=== PATIENT | female | born 1930 | race Caucasian/White ===

== ENCOUNTER 2016-12-10 12:25 | Day surgery (SDC) | payer MEDICARE ==
[2016-12-03 10:36] LABS: HEMATOCRIT 39.4 % (36.0-47.0); HEMOGLOBIN 12.8 g/dL (12.0-15.5); MEAN CORPUSCULAR HEMOGLOBIN 30.4 pg (27.0-33.4); MEAN CORPUSCULAR HGB CONC 32.4 g/dL (32.0-36.0); MEAN CORPUSCULAR VOLUME 94 fl (80-97); RED CELL DISTRIBUTION WIDTH 13.6 % (11.5-14.0); WHITE BLOOD COUNT 11.6 10^3/uL (4.0-10.5)
[2016-12-03 11:03] LABS: ANION GAP 14 (5-19); BLOOD UREA NITROGEN 10 mg/dL (7-20); CALCIUM 9.6 mg/dL (8.4-10.2); CARBON DIOXIDE 28 mmol/L (22-30); CHLORIDE 101 mmol/L (98-107); GLUCOSE 95 mg/dL (75-110); POTASSIUM 3.5 mmol/L (3.6-5.0); SODIUM 142.9 mmol/L (137-145)
--- NOTE | 2016-12-05 16:19 | EKG REPORT ---
SEVERITY:- ABNORMAL ECG - WANDERING PACEMAKER SUPRAVENTRICULAR BIGEMINY LVH WITH IVCD, LAD AND SECONDARY REPOL ABNRM : Confirmed by: Jessica Dillon MD 05-Dec-2016 16:18:35
[~2016-12-10 12:25] MED LIST: LACTATED RINGERS 1000 ML IV PRN; LIDOCAINE 0.5% INJ-PF (5 MG/ML) 50 ML SDV SUBCUT PRN
[2016-12-10] MEDS ORDERED: LIDOCAINE 0.5% INJ-PF (5 MG/ML) 50 ML SDV ONE (13:51)
[2016-12-10] MEDS ORDERED: BUPIVACAINE HCL 0.25 % INJ/PF (2.5 MG/1 ML) 30 ML VIAL ONE (13:51)
[2016-12-10] MEDS ORDERED: BACITRACIN INJ 50,000 UNIT VIAL ONE (13:52)
[2016-12-10] MEDS ORDERED: KETAMINE HCL INJ 500 MG/10 ML VIAL ONE (16:57)
[2016-12-10] MEDS ORDERED: MIDAZOLAM 2 MG/2 ML INJ ONE (16:57)
[2016-12-10] MEDS ORDERED: PROPOFOL INJ 200 MG/20 ML VIAL IV ONE (16:57)
[2016-12-10] MEDS ORDERED: BUPIVACAINE HCL 0.25 % INJ/PF (2.5 MG/1 ML) 30 ML VIAL INJ ONE (17:30)
--- NOTE | 2016-12-10 18:23 | PDOC DISCHARGE SUMMARY ---
Discharge Summary (SDC) - Discharge Final Diagnosis: 1 infected, ulcerated mass of right axilla. 2. Dementia. 3. Coronary artery disease. Date of Surgery: 12/10/16 Discharge Date: 12/10/16 Condition: Fair Treatment or Instructions: Discharge home [after recovery per ASU criteria]. Diet , as tolerated, when fully awake advance as tolerated. Activities within moderation encouraged. Follow up in my office by appointment in about [1 week]. Call for appointment. Wound care: Leave dressing on until 13 December. Then dressing may be changed daily by irrigating with peroxide and applying Bactroban ointment to be covered with gauze. Repeat daily thereafter. Discharge Diet: As Tolerated Respiratory Treatments at Home: Deep Breathing/Coughing Discharge Activity: Activity As Tolerated Report the Following to Your Physician Immediately: Unusual Bleeding
--- NOTE | 2016-12-10 18:30 | Operative Report ---
Operative Report DATE OF SURGERY: 12/10/16 PREOPERATIVE DIAGNOSIS: 1 infected, ulcerated mass of right axilla. 2. Dementia. 3. Coronary artery disease. POSTOPERATIVE DIAGNOSIS: 1 infected, ulcerated mass of right axilla. Post excision. 2. Dementia. 3. Coronary artery disease. OPERATION: Excision of infected, ulcerated mass of right axilla. SURGEON: VIKTOR COOPER JUNK REMOVAL SPECIALIST: None ANESTHESIA: LMAC TISSUE REMOVED OR ALTERED: , Ulcerated mass of right axilla COMPLICATIONS: None ESTIMATED BLOOD LOSS: 5 mL. INTRAOPERATIVE FINDINGS: Of an ulcerated infected mass in the right axilla. It appears confined to the skin and measures approximately 3 x 2 cm. There are small satellite areas which were not addressed today. The mass was excised down to the subcutaneous tissues which looked healthy. The mass was sent for pathology in formalin and some of the purulent material and sent for culture. PROCEDURE: PROCEDURE: The right axillary area was prepared with Betadine and draped out with sterile linen. After the"universal time-out", in which it was confirmed that the patient [did receive antibiotic], the procedure commenced. The patient was appropriately anesthetized. A dilute solution of local anesthesia was generously infiltrated in the skin and subcutaneous tissues above and around the mass. An incision was made transversely and in an oval fashion. This went through to the subcutaneous tissues. Dissection now proceeded in the subcutaneous tissue circumferentially around the mass and then finally posterior to it. In this way the entire mass was [removed and submitted for pathology, was sent for culture.. The wound was irrigated with [saline] . Meticulous hemostasis was secured in the wound. This was done using [cautery and also 1 interrupted suture of 3-0 PDS]. [The wound was irrigated once more with sterile saline solution]. The wound was now dressed with Surgicel. A sterile dressing was applied and the procedure concluded.
[2016-12-10 19:38] VITALS: BP 135/60
== END 2016-12-10 19:30 | disposition home or self-care (01) ==
LOC: OROUT 12:25
PROVIDERS: ATTEND Surgery
PROC: 0HBBXZZ Excision of Right Upper Arm Skin, External Approach (ICD-10-PCS; principal; 2016-12-10 14:30)
DX: L02.411 Cutaneous abscess of right axilla (principal); B95.62 Methicillin resistant Staphylococcus aureus infection as the cause of diseases classified elsewhere; L98.491 Non-pressure chronic ulcer of skin of other sites limited to breakdown of skin; G30.9 Alzheimer's disease, unspecified; F02.80 Dementia in other diseases classified elsewhere, unspecified severity, without behavioral disturbance, psychotic disturbance, mood disturbance, and anxiety; Z96.641 Presence of right artificial hip joint; I25.2 Old myocardial infarction; Z95.1 Presence of aortocoronary bypass graft; Z79.82 Long term (current) use of aspirin; Z79.899 Other long term (current) drug therapy; Z87.891 Personal history of nicotine dependence; L03.90 Cellulitis, unspecified
CPT/HCPCS: 11406; 93005; 36415; 87070; 87205; 85027; 87075; 87077; 80048; 87186; 88305 ×2; 93010; J2250; J3490 ×3; J0690; J2704; 400